=== PATIENT | male | born 1935 | race Caucasian/White ===

== ENCOUNTER 2020-11-20 17:18 | Emergency (ER) | payer MEDICARE ==
[~2020-11-20] VITALS: Ht 170.2 cm; Wt 77.1 kg
[2020-11-20 18:00] VITALS: BP_SYST 132
[2020-11-20 18:46] LABS: HEMATOCRIT 34.3 % (36-54); MEAN CORPUSCULAR HEMOGLOBIN 29 pg (27-31)
[2020-11-20 18:58] LABS: HEMOGLOBIN 11.3 g/dL (14.0-18.0); MEAN CORPUSCULAR HGB CONC 33 % (32-36); MEAN CORPUSCULAR VOLUME 87 fL (79.0-98.0); PLATELET COUNT (AUTO) 260 K/uL (130-430); RED BLOOD CELL COUNT(AUTO) 3.94 MIL/uL (4.2-6.2); RED CELL DISTRIBUTION WIDTH 16.3 % (9.0-15.0); WHITE BLOOD COUNT (AUTO) 18.7 K/uL (4.8-10.8)
[2020-11-20 19:01] LABS: ANION GAP 9 (5-15); CALCIUM 9.8 mg/dL (8.4-11.0); CHLORIDE 102 mmol/L (98-107); CREATININE 2.02 mg/dL (0.55-1.30); GLUCOSE 76 mg/dL (70-99); POTASSIUM 4.5 mmol/L (3.5-5.1); SODIUM SERUM 138 mmol/L (136-145); UREA NITROGEN, BLOOD 51 mg/dL (8-21)
[2020-11-20 19:06] LABS: ALANINE AMINOTRANSFERASE 102 U/L (12-78); ALBUMIN 2.3 g/dL (3.4-4.8); ASPARTATE AMINOTRANSFERASE 81 U/L (10-37); TOTAL BILIRUBIN 0.8 mg/dL (0.0-1.0)
[2020-11-20 19:39] LABS: ATYPICAL LYMPHOCYTES % 0 % (0-0); BAND % (MANUAL) 8 % (0-6); BASOPHILS % (MANUAL) 0 % (0-2); EOSINOPHILS % (MANUAL) 0 % (0-7); LYMPHOCYTES % (MANUAL) 4 % (20-46); MONOCYTES % (MANUAL) 3 % (0-11)
[2020-11-20] MEDS ORDERED: DEXTROSE 50% JECT 50 ML DISP.SYRIN IVP ONE (19:45)
[2020-11-20] MEDS ORDERED: D5/0.45 NS 1,000 ML IV ONE (19:45)
[2020-11-20] MEDS ORDERED: NPH,100I SQ ×2 (21:15→21:18)
[2020-11-20] MEDS ORDERED: ASPI-1155 PO (21:15)
[2020-11-20] MEDS ORDERED: ATOR40TA68 PO (21:15)
[2020-11-20] MEDS ORDERED: AMLO2.5T2 PO (21:15)
[2020-11-20] MEDS ORDERED: ATEN-166 PO (21:15)
[2020-11-20] MEDS ORDERED: GLIP10TA3 PO (21:15)
[2020-11-20] MEDS ORDERED: LISI40TA13 PO (21:15)
[2020-11-20] MEDS ORDERED: CALC0.258 PO (21:15)
[2020-11-20] MEDS ORDERED: VITD2000 PO (21:18)
[2020-11-20] MEDS ORDERED: WARF2.5T83 PO (21:18)
[2020-11-20] MEDS ORDERED: GLIP5TAB13 PO (21:21)
[2020-11-20 22:42] LABS: BILIRUBIN,URINE NEGATIVE (NEGATIVE); BLOOD, URINE 2+ (NEGATIVE); COLOR,URINE YELLOW (YELLOW); GLUCOSE,URINE TRACE (NEGATIVE); KETONES,URINE NEGATIVE (NEGATIVE); LEUKOCYTE ESTERASE ,URINE NEGATIVE (NEGATIVE); NITRITE, URINE NEGATIVE (NEGATIVE); PH,URINE 5.5 (5.0-8.0); PROTEIN URINE 1+ (NEGATIVE)
[2020-11-20 22:44] LABS: CLARITY/URINE SLIGHTLY CLOUDY (CLEAR)
[2020-11-20 23:15] LABS: BACTERIA,URINE FEW /HPF (None Seen); WBC,URINE 0-3 /HPF (0-3)
[2020-11-21 00:35] VITALS: BP_SYST 155
== END 2020-11-21 00:35 | disposition short-term general hospital (02) ==
LOC: SED 17:18
DX: E11.65 Type 2 diabetes mellitus with hyperglycemia (principal); E11.29 Type 2 diabetes mellitus with other diabetic kidney complication; R41.82 Altered mental status, unspecified; N28.9 Disorder of kidney and ureter, unspecified; Z79.899 Other long term (current) drug therapy; Z79.4 Long term (current) use of insulin; Z20.822 Contact with and (suspected) exposure to COVID-19
CPT/HCPCS: 36415; 71045; 80053; 81000; 82962; 83605; 85007; 85027; 96365; 96366; 96376; 99284